=== PATIENT | female | born 1955 | race Caucasian/White ===

== ENCOUNTER 2019-10-31 20:02 | Inpatient (IN) | payer BC, MEDICARE ==
[2019-10-31] MEDS ORDERED: Famotidine 20 MG/2 ML SDV IVPUSH ONE (20:12)
[2019-10-31] MEDS ORDERED: Sodium Chloride 0.9% 1,000 ML IV ONE (20:12)
--- NOTE | 2019-10-31 20:19 | EDM.PDOC ---
ED HPI GENERAL MEDICAL PROBLEM - General Chief Complaint: General Stated Complaint: ABDOMINAL PAIN Time Seen by Provider: 10/31/19 20:09 Source of Information: Reports: Patient History Limitations: Reports: No Limitations - History of Present Illness INITIAL COMMENTS - FREE TEXT/NARRATIVE: Patient is a 63-year-old female who presents to the emergency department this evening via private vehicle with a complaint of abdominal pain. Patient states the abdominal pain began about 1800 yesterday, located right upper quadrant, feels like an ache and a stabbing pain. Symptoms persisted all day today, so she spoke to her son who decided to bring her to the emergency room. She states she does have a history of appendectomy. However, she believes she does still have her gallbladder. Symptoms did get worse after eating. Patient denies chest pain, shortness of breath, fever, out of area travel, lower extremity edema, nausea, vomiting or diarrhea. Onset: Gradual Onset Date: 10/30/19 Onset Time: 18:00 Duration: Day(s): Location: Reports: Abdomen Quality: Reports: Ache Severity: Moderate Improves with: Reports: None Worsens with: Reports: None Associated Symptoms: Reports: No Other Symptoms. Denies: Chest Pain, Cough, Diaphoresis, Fever/Chills, Nausea/Vomiting, Rash, Shortness of Breath Right Upper Abdomen Pain Score (Numeric/FACES): 6 - Related Data Allergies Allergy/AdvReac Type Severity Reaction Status Date / Time No Known Allergies Allergy Verified 10/31/19 20:07 Home Meds: Home Meds Calcium/D3/Argnin/Inos/Silicon [Bone Density Calcium + D Cplt] 1 each PO DAILY 10/31/19 [History] Cranberry 500 mg PO DAILY 10/31/19 [History] Ferrous Sulfate 325 mg PO DAILY 10/31/19 [History] Ibuprofen [Motrin] 400 mg PO BID 10/31/19 [History] Multivitamin [Multi-Day Vitamins] 1 tab PO DAILY 10/31/19 [History] Omeprazole 20 mg PO DAILY 10/31/19 [History] carBAMazepine [Carbamazepine] 200 mg PO BID 10/31/19 [History] guaiFENesin/Dextromethorphan [Mucus Relief DM] 1 tab PO DAILY 10/31/19 [History] ED ROS GENERAL - Review of Systems Review Of Systems: Comprehensive ROS is negative, except as noted in HPI. Constitutional: Reports: No Symptoms HEENT: Reports: No Symptoms Respiratory: Reports: No Symptoms Cardiovascular: Reports: No Symptoms Endocrine: Reports: No Symptoms GI/Abdominal: Reports: Abdominal Pain. Denies: Black Stool, Bloody Stool, Constipation, Diarrhea, Mucous in Stool : Reports: No Symptoms Musculoskeletal: Reports: No Symptoms Skin: Reports: No Symptoms Neurological: Reports: No Symptoms Psychiatric: Reports: No Symptoms Hematologic/Lymphatic: Reports: No Symptoms Immunologic: Reports: No Symptoms ED EXAM, GENERAL - Physical Exam Exam: See Below Exam Limited By: No Limitations General Appearance: Alert, WD/WN, No Apparent Distress Nose: Normal Inspection, Normal Mucosa, No Blood Throat/Mouth: Normal Inspection, Normal Oropharynx, No Airway Compromise Head: Atraumatic, Normocephalic Neck: Normal Inspection Respiratory/Chest: No Respiratory Distress, Lungs Clear, Normal Breath Sounds, No Accessory Muscle Use, Chest Non-Tender Cardiovascular: No Murmur, Tachycardia GI/Abdominal: Normal Bowel Sounds, Soft, Tender (Right upper quadrant) Back Exam: Normal Inspection. No: CVA Tenderness (L), CVA Tenderness (R) Extremities: Normal Inspection, No Pedal Edema Neurological: Alert, Oriented, Normal Cognition Psychiatric: Normal Affect, Normal Mood Skin Exam: Warm, Dry, Intact, Normal Color, No Rash Lymphatic: No Adenopathy Course - Vital Signs Last Recorded V/S: Last Vital Signs Temp 98.6 F 10/31/19 21:05 Pulse 111 H 10/31/19 21:05 Resp 18 10/31/19 21:05 BP 130/54 L 10/31/19 21:05 Pulse Ox 98 10/31/19 21:05 - Orders/Labs/Meds Orders: Active Orders 24 hr Category Date Time Status Patient Status [ADT] Routine ADT 10/31/19 22:02 Ordered Oxygen Therapy [RC] PRN Care 10/31/19 22:02 Ordered Peripheral IV Care [RC] . DIRECTED Care 10/31/19 20:12 Ordered VTE/DVT Education [RC] PER UNIT ROUTINE Care 10/31/19 22:02 Ordered Vital Signs [RC] Q4H Care 10/31/19 22:02 Ordered Abdomen Pelvis w Cont [CT] Stat Exams 10/31/19 20:09 Ordered CULTURE URINE [RM] Stat Lab 10/31/19 20:27 Received LACTIC ACID [CHEM] Stat Lab 10/31/19 21:55 Ordered Sodium Chloride 0.9% [Normal Saline] 50 ml Med 10/31/19 21:15 Active IV ASDIRECTED Sodium Chloride 0.9% [Saline Flush] Med 10/31/19 20:12 Ordered 10 ml FLUSH Q8HR PRN metroNIDAZOLE/Normal Saline [Flagyl 500 MG in NS 100 ML Med 10/31/19 21:58 Ordered ] 500 mg Premix Bag 1 bag IV ONETIME Peripheral IV Insertion Adult [OM.PC] Routine Oth 10/31/19 20:12 Ordered Resuscitation Status Routine Resus Stat 10/31/19 22:02 Ordered Medication Orders Sodium Chloride (Normal Saline) 50 mls @ 200 mls/hr IV ASDIRECTED ALTON Last Admin: 10/31/19 21:25 Dose: 200 mls/hr Metronidazole 500 mg/ Premix 100 mls @ 100 mls/hr IV ONETIME ONE Stop: 10/31/19 22:57 Sodium Chloride (Saline Flush) 10 ml FLUSH Q8HR PRN PRN Reason: keep vein open Last Admin: 10/31/19 20:34 Dose: 10 ml Labs: Laboratory Tests 10/31/19 10/31/19 10/31/19 Range/Units 20:17 20:17 20:27 WBC 19.54 H D (5.00-10.00) 10^3/uL RBC 3.02 L (3.80-5.50) 10^6/uL Hgb 10.8 L (12.0-16.0) g/dL Hct 30.6 L (37.0-47.0) % MCV 101.3 H (82.0-92.0) fL MCH 35.8 H (27.0-31.0) pg MCHC 35.3 (32.0-36.0) g/dL RDW 15.8 H (11.5-14.5) % Plt Count 191 (150-400) 10^3/uL MPV 9.6 (7.4-10.4) fL Immature Gran % (Auto) 0.3 (0.0-5.0) % Neut % (Auto) 89.6 H (50.0-70.0) % Lymph % (Auto) 3.3 L (20.0-40.0) % [place] % (Auto) 6.7 (2.0-8.0) % Eos % (Auto) 0.0 L (1.0-3.0) % Baso % (Auto) 0.1 (0.0-1.0) % Immature Gran # (Auto) 0.06 (0.00-0.50) 10^3/uL Neut # (Auto) 17.51 H (2.50-7.00) 10^3/uL Lymph # (Auto) 0.65 L (1.00-4.00) 10^3/uL [place] # (Auto) 1.30 H (0.10-0.80) 10^3/uL Eos # (Auto) 0.00 L (0.10-0.30) 10^3/uL Baso # (Auto) 0.02 (0.00-0.10) 10^3/uL Sodium 136 (136-145) mmol/L Potassium 3.9 (3.3-5.3) mmol/L Chloride 96 L (98-115) mmol/L Carbon Dioxide 28.4 (21.0-32.0) mmol/L Anion Gap 15.5 H (5-15) mmol/L BUN 13 (6-25) mg/dL Creatinine 0.55 (0.51-1.17) mg/dL Est Cr Clr Drug Dosing 89.23 mL/min Estimated GFR (MDRD) > 60 mL/min Glucose 138 H (75 - 99) mg/dL Calcium 8.7 (8.7-10.3) mg/dL Total Bilirubin 1.2 H (0.2-1.0) mg/dL AST 21 (15-37) U/L ALT 35 (12-78) U/L Alkaline Phosphatase 64 (46-116) IU/L Total Protein 7.5 (6.4-8.2) g/dL Albumin 3.64 (3.00-4.80) g/dL Lipase 62 L (73-393) U/L Specimen Type . Urine Color Dark yellow H (YELLOW) Urine Appearance Turbid H (CLEAR) Urine pH 6.0 (5.0-9.0) Ur Specific [place] 1.015 (1.005-1.030) Urine Protein >=300 H (NEGATIVE) mg/dL Urine Glucose (UA) Negative (NEGATIVE) mg/dL Urine Ketones Negative (NEGATIVE) mg/dL Urine Occult Blood Small H (NEGATIVE) Urine Nitrite Positive H (NEGATIVE) Urine Bilirubin Small H (NEGATIVE) Urine Urobilinogen 0.2 (0.2-1.0) E.U./dL Ur Leukocyte Esterase Large H (NEGATIVE) Urine RBC 5-10 H (0-5) /HPF Urine WBC 75-100 H (0-5) /HPF Urine Bacteria Many H (NONE TO FEW) /HPF Meds: Medications Generic Name Dose Route Start Last Admin Trade Name Freq PRN Reason Stop Dose Admin Sodium Chloride 50 mls @ 200 mls/hr 10/31/19 21:15 10/31/19 21:25 Normal Saline IV 200 mls/hr ASDIRECTED ALTON Administration Metronidazole 500 mg/ Premix 100 mls @ 100 mls/hr 10/31/19 21:58 IV 10/31/19 22:57 ONETIME ONE Sodium Chloride 10 ml 10/31/19 20:12 10/31/19 20:34 Saline Flush FLUSH 10 ml Q8HR PRN Administration keep vein open Discontinued Medications Generic Name Dose Route Start Last Admin Trade Name Freq PRN Reason Stop Dose Admin Ceftriaxone Sodium 2 gm 10/31/19 21:58 Rocephin IVPUSH 10/31/19 21:59 ONETIME ONE Famotidine 20 mg 10/31/19 20:12 10/31/19 20:34 Pepcid IVPUSH 10/31/19 20:13 20 mg ONETIME ONE Administration Sodium Chloride 1,000 mls @ 999 mls/hr 10/31/19 20:12 10/31/19 20:29 Normal Saline IV 10/31/19 21:12 999 mls/hr .BOLUS ONE Administration Iopamidol 100 ml 10/31/19 21:01 10/31/19 21:25 [id number] (76%) IV 10/31/19 21:02 75 ml ONETIME ONE Administration - Radiology Interpretation Free Text/Narrative:: CT abdomen and pelvis with contrast shows thickening of the gallbladder, likely representing cholecystitis, and a focal area of colitis from the terminal ileum and cecum. - Re-Assessments/Exams Free Text/Narrative Re-Assessment/Exam: 10/31/19 22:07 Patient afebrile, vital signs stable, pain relieved. Discussed case with Dr. Isaac johnston, patient will be admitted inpatient and followed. Patient given 2 g Rocephin and 500 mg Flagyl in ER. Departure - Departure Time of Disposition: 22:43 Disposition: Admitted As Inpatient 65 Condition: Fair Clinical Impression: Cholecystitis, UTI, Urinary tract infectious disease Leukocytosis Qualifiers: Leukocytosis type: unspecified Qualified Code(s): D72.829 - Elevated white blood cell count, unspecified - Discharge Information Forms: ED Department Discharge Sepsis Event Note - Focused Exam Vital Signs: Vital Signs Temp Pulse Resp BP Pulse Ox 10/31/19 21:05 98.6 F 111 H 18 130/54 L 98 10/31/19 20:40 110 H 18 132/57 L 98 10/31/19 20:21 99.2 F 118 H 20 130/56 L 95 Date Exam was Performed: 10/31/19 Time Exam was Performed: 22:08 - My Orders Last 24 Hours: My Active Orders 10/31/19 20:09 Abdomen Pelvis w Cont [CT] Stat 10/31/19 20:12 Peripheral IV Care [RC] . DIRECTED Sodium Chloride 0.9% [Saline Flush] 10 ml FLUSH Q8HR PRN Peripheral IV Insertion Adult [OM.PC] Routine 10/31/19 20:27 CULTURE URINE [RM] Stat 10/31/19 21:15 Sodium Chloride 0.9% [Normal Saline] 50 ml IV ASDIRECTED 10/31/19 21:55 LACTIC ACID [CHEM] Stat 10/31/19 21:58 metroNIDAZOLE/Normal Saline [Flagyl 500 MG in NS 100 ML] 500 mg Premix Bag 1 bag IV ONETIME 10/31/19 22:02 Patient Status [ADT] Routine Oxygen Therapy [RC] PRN VTE/DVT Education [RC] PER UNIT ROUTINE Vital Signs [RC] Q4H Resuscitation Status Routine - Assessment/Plan Last 24 Hours: My Active Orders 10/31/19 20:09 Abdomen Pelvis w Cont [CT] Stat 10/31/19 20:12 Peripheral IV Care [RC] . DIRECTED Sodium Chloride 0.9% [Saline Flush] 10 ml FLUSH Q8HR PRN Peripheral IV Insertion Adult [OM.PC] Routine 10/31/19 20:27 CULTURE URINE [RM] Stat 10/31/19 21:15 Sodium Chloride 0.9% [Normal Saline] 50 ml IV ASDIRECTED 10/31/19 21:55 LACTIC ACID [CHEM] Stat 10/31/19 21:58 metroNIDAZOLE/Normal Saline [Flagyl 500 MG in NS 100 ML] 500 mg Premix Bag 1 bag IV ONETIME 10/31/19 22:02 Patient Status [ADT] Routine Oxygen Therapy [RC] PRN VTE/DVT Education [RC] PER UNIT ROUTINE Vital Signs [RC] Q4H Resuscitation Status Routine Assessment:: Cholecystitis, UTI Plan: Admit to [facility]
[2019-10-31] MEDS: Sodium Chloride 0.9% 10 ML Syringe FLUSH PRN ×2 (20:34→23:15)
[2019-10-31 20:56] LABS: ANION GAP 15.5 mmol/L (5-15); CHLORIDE,CL 96 mmol/L (98-115); SODIUM,NA 136 mmol/L (136-145)
[2019-10-31] MEDS ORDERED: Iopamidol 755 Mg/ML 100 ML Bottle IV ONE (21:01)
[2019-10-31] MEDS ORDERED: Sodium Chloride 0.9% 50 ML IV SCH (21:15)
[2019-10-31] MEDS ORDERED: cefTRIAXone 1 GM Vial IVPUSH ONE (21:58)
[2019-10-31] MEDS ORDERED: metroNIDAZOLE/Normal Saline 500 MG in Premix Bag 1 BAG IV ONE (21:58)
[2019-10-31] MEDS ORDERED: Ampicillin/Sulbactam Na 1.5 GM in Sodium Chloride 0.9% 50 ML IV ONE (22:42)
[2019-10-31] MEDS ORDERED: Ketorolac 30 MG/ML SDV IVPUSH PRN (23:07)
[2019-10-31] MEDS: Sodium Chloride 0.9% 1,000 ML IV SCH (23:18)
[2019-10-31] MEDS ORDERED: carBAMazepine 200 MG Tab PO ONE (23:45)
[2019-10-31] MEDS: Ampicillin/Sulbactam Na 1.5 GM in Sodium Chloride 0.9% 50 ML IV SCH (23:54)
[2019-11-01] MEDS: Ampicillin/Sulbactam Na 1.5 GM in Sodium Chloride 0.9% 50 ML IV SCH ×2 (05:26→11:16)
[2019-11-01] MEDS ORDERED: Pantoprazole 40 MG Vial IVPUSH SCH (07:30)
[2019-11-01] MEDS: Sodium Chloride 0.9% 10 ML Syringe FLUSH PRN (07:45)
[2019-11-01 07:50] LABS: ANION GAP 12.6 mmol/L (5-15); CHLORIDE,CL 103 mmol/L (98-115); SODIUM,NA 140 mmol/L (136-145)
[2019-11-01] MEDS ORDERED: carBAMazepine 200 MG Tab PO SCH ×2 (09:00)
[2019-11-01] MEDS: Sodium Chloride 0.9% 1,000 ML IV SCH (09:09)
--- NOTE | 2019-11-01 09:31 | CT ---
[id number] CT/CT Abdomen Pelvis W IV EXAM: CT Abdomen Pelvis W IV CLINICAL DATA: ABDOMINAL PAIN COMPARISON: NO PREVIOUS SIMILAR EXAM IS AVAILABLE. FINDINGS: Inflammatory changes are seen at the level of the hepatic flexure of the colon and the gallbladder The gallbladder is distended The gallbladder wall is thickened. There is free fluid in the pelvis The remainder of the exam is unremarkable IMPRESSION: IMAGING FINDINGS MOST CONSISTENT WITH ACUTE CHOLECYSTITIS CORRELATION WITH ULTRASOUND MAY BE HELPFUL SURGICAL OPINION NEEDED Kade Ferrell MD 11/01/19 [id number] Thank you for allowing us to participate in the care of your patient.
--- NOTE | 2019-11-01 11:59 | PCM.HP.2 ---
H&P History of Present Illness - General Date of Service: 11/01/19 Admit Problem/Dx: Admission Diagnosis/Problem Admission Diagnosis/Problem Cholecystitis - History of Present Illness Initial Comments - Free Text/Narative: 63-year-old female admitted from the ED to inpatient status at [facility] due to acute cholecystitis. Patient initially presented to the ED via private vehicle by her son for right upper quadrant pain and nausea that was present for one day prior to presentation. The pain was an ache and stabbing. Pain was persistent throughout the day and night prompting her to seek care. She does note that symptoms worsen after eating. She was nauseated, but did not vomit. She denied chest pain, shortness of breath, fever, diarrhea or edema. There were no overnight concerns. Patient reports that the pain is less, but is still 4/10. She is hungry, no longer nauseated. She reports a bowel movement in the AM without hematochezia. Right Upper Abdomen Pain Score (Numeric/FACES): 4 - Related Data Allergies/Adverse Reactions: Allergies Allergy/AdvReac Type Severity Reaction Status Date / Time No Known Allergies Allergy Verified 10/31/19 23:24 Home Medications: Home Meds Calcium/D3/Argnin/Inos/Silicon [Bone Density Calcium + D Cplt] 1 each PO DAILY 10/31/19 [History] Cranberry 500 mg PO BID 10/31/19 [History] Ferrous Sulfate 325 mg PO BID 10/31/19 [History] Ibuprofen [Motrin] 400 mg PO BID 10/31/19 [History] Multivitamin [Multi-Day Vitamins] 1 tab PO DAILY 10/31/19 [History] Omeprazole 20 mg PO DAILY 10/31/19 [History] carBAMazepine [Carbamazepine] 400 mg PO BID 10/31/19 [History] guaiFENesin/Dextromethorphan [Mucus Relief DM] 1 tab PO BEDTIME 10/31/19 [ History] Past Medical History HEENT History: Reports: Impaired Vision Cardiovascular History: Reports: None Respiratory History: Reports: None Gastrointestinal History: Reports: None Genitourinary History: Reports: None [employer] History: Reports: Musculoskeletal History: Reports: None Neurological History: Reports: Seizure, Other (See Below) Other Neuro History: Epilepsy Psychiatric History: Reports: None Endocrine/Metabolic History: Reports: None Hematologic History: Reports: Anemia Immunologic History: Reports: None Oncologic (Cancer) History: Reports: None Dermatologic History: Reports: None - Past Surgical History HEENT Surgical History: Reports: Oral Surgery GI Surgical History: Reports: Appendectomy Female Surgical History: Reports: Tubal Ligation Social & Family History - Family History Family Medical History: Noncontributory - Tobacco Use Smoking Status *Q: Never Smoker - Caffeine Use Caffeine Use: Reports: Coffee - Recreational Drug Use Recreational Drug Use: No H&P Review of Systems - Review of Systems: Review Of Systems: See Below ([facility]) General: Denies: Fever, Chills, Weakness HEENT: Denies: Headaches, Sore Throat, Visual Changes Pulmonary: Denies: Shortness of Breath, Wheezing, Cough Cardiovascular: Denies: Chest Pain, Palpitations, Edema, Lightheadedness Gastrointestinal: Reports: Abdominal Pain (10/29). Denies: Black Stool, Constipation, Diarrhea Genitourinary: Denies: Dysuria, Frequency, Hematuria Musculoskeletal: Denies: Back Pain, Joint Pain, Muscle Pain Skin: Denies: Jaundice, Bruising, Rash Psychiatric: Denies: Confusion, Mood Lability, Anxiety Neurological: Denies: Dizziness, Headache, Numbness, Seizure, Weakness Hematologic/Lymphatic: Reports: Anemia Immunologic: Reports: No Symptoms Exam - Exam Exam: See Below - Vital Signs Vital Signs: Last Vital Signs Temp 37.5 C 11/01/19 11:00 Pulse 109 H 11/01/19 11:00 Resp 16 11/01/19 11:00 BP 118/67 11/01/19 11:00 Pulse Ox 97 11/01/19 11:00 Weight: 65.499 kg - Exam Physical Exam Comments:: GENERAL: Well-appearing adult, sitting up in chair in no acute distress. HEENT: Normocephalic, atraumatic. Conjunctiva clear. Nares patent without discharge. Mucous membranes moist, posterior pharynx unremarkable. NECK: Supple, no masses. CV: Tachycardia with regular rhythm, no murmurs, rubs, or gallops. 2+ radial pulses. PULMONARY: Normal effort, clear to auscultation bilaterally, no wheezes, rales, or rhonchi. ABDOMEN: Positive bowel sounds, soft, tender upon mild palpation to right upper quadrant with guarding noted, nondistended. EXTREMITIES: No edema, cyanosis, or clubbing. MUSCULOSKELETAL: Moves all extremities well. NEUROLOGICAL: No obvious deficits. DERMATOLOGIC: No rashes or suspicious lesions in exposed areas. PSYCHIATRIC: Alert, interactive, appropriate affect. - Patient Data Lab Results Last 24 hrs: Laboratory Results - last 24 hr 10/31/19 10/31/19 10/31/19 Range/Units 20:17 20:17 20:17 WBC 19.54 H D (5.00-10.00) 10^3/uL RBC 3.02 L (3.80-5.50) 10^6/uL Hgb 10.8 L (12.0-16.0) g/dL Hct 30.6 L (37.0-47.0) % MCV 101.3 H (82.0-92.0) fL MCH 35.8 H (27.0-31.0) pg MCHC 35.3 (32.0-36.0) g/dL RDW 15.8 H (11.5-14.5) % Plt Count 191 (150-400) 10^3/uL MPV 9.6 (7.4-10.4) fL Immature Gran % (Auto) 0.3 (0.0-5.0) % Neut % (Auto) 89.6 H (50.0-70.0) % Lymph % (Auto) 3.3 L (20.0-40.0) % [place] % (Auto) 6.7 (2.0-8.0) % Eos % (Auto) 0.0 L (1.0-3.0) % Baso % (Auto) 0.1 (0.0-1.0) % Immature Gran # (Auto) 0.06 (0.00-0.50) 10^3/uL Neut # (Auto) 17.51 H (2.50-7.00) 10^3/uL Lymph # (Auto) 0.65 L (1.00-4.00) 10^3/uL [place] # (Auto) 1.30 H (0.10-0.80) 10^3/uL Eos # (Auto) 0.00 L (0.10-0.30) 10^3/uL Baso # (Auto) 0.02 (0.00-0.10) 10^3/uL Sodium 136 (136-145) mmol/L Potassium 3.9 (3.3-5.3) mmol/L Chloride 96 L (98-115) mmol/L Carbon Dioxide 28.4 (21.0-32.0) mmol/L Anion Gap 15.5 H (5-15) mmol/L BUN 13 (6-25) mg/dL Creatinine 0.55 (0.51-1.17) mg/dL Est Cr Clr Drug Dosing 89.23 mL/min Estimated GFR (MDRD) > 60 mL/min Glucose 138 H (75 - 99) mg/dL Lactic Acid 1.6 (0.4-2.0) mmol/L Calcium 8.7 (8.7-10.3) mg/dL Total Bilirubin 1.2 H (0.2-1.0) mg/dL AST 21 (15-37) U/L ALT 35 (12-78) U/L Alkaline Phosphatase 64 (46-116) IU/L Total Protein 7.5 (6.4-8.2) g/dL Albumin 3.64 (3.00-4.80) g/dL Lipase 62 L (73-393) U/L Specimen Type Urine Color (YELLOW) Urine Appearance (CLEAR) Urine pH (5.0-9.0) Ur Specific [place] (1.005-1.030) Urine Protein (NEGATIVE) mg/dL Urine Glucose (UA) (NEGATIVE) mg/dL Urine Ketones (NEGATIVE) mg/dL Urine Occult Blood (NEGATIVE) Urine Nitrite (NEGATIVE) Urine Bilirubin (NEGATIVE) Urine Urobilinogen (0.2-1.0) E.U./dL Ur Leukocyte Esterase (NEGATIVE) Urine RBC (0-5) /HPF Urine WBC (0-5) /HPF Urine Bacteria (NONE TO FEW) /HPF 10/31/19 11/01/19 11/01/19 Range/Units 20:27 07:05 07:05 WBC 11.69 H (5.00-10.00) 10^3/uL RBC 2.46 L (3.80-5.50) 10^6/uL Hgb 8.7 L D (12.0-16.0) g/dL Hct 25.6 L (37.0-47.0) % MCV 104.1 H (82.0-92.0) fL MCH 35.4 H (27.0-31.0) pg MCHC 34.0 (32.0-36.0) g/dL RDW 16.0 H (11.5-14.5) % Plt Count 139 L (150-400) 10^3/uL MPV 9.2 (7.4-10.4) fL Immature Gran % (Auto) 0.9 (0.0-5.0) % Neut % (Auto) 86.1 H (50.0-70.0) % Lymph % (Auto) 5.7 L (20.0-40.0) % [place] % (Auto) 7.1 (2.0-8.0) % Eos % (Auto) 0.0 L (1.0-3.0) % Baso % (Auto) 0.2 (0.0-1.0) % Immature Gran # (Auto) 0.11 (0.00-0.50) 10^3/uL Neut # (Auto) 10.06 H (2.50-7.00) 10^3/uL Lymph # (Auto) 0.67 L (1.00-4.00) 10^3/uL [place] # (Auto) 0.83 H (0.10-0.80) 10^3/uL Eos # (Auto) 0.00 L (0.10-0.30) 10^3/uL Baso # (Auto) 0.02 (0.00-0.10) 10^3/uL Sodium 140 (136-145) mmol/L Potassium 3.9 (3.3-5.3) mmol/L Chloride 103 (98-115) mmol/L Carbon Dioxide 28.3 (21.0-32.0) mmol/L Anion Gap 12.6 (5-15) mmol/L BUN 8 (6-25) mg/dL Creatinine 0.58 (0.51-1.17) mg/dL Est Cr Clr Drug Dosing 84.62 mL/min Estimated GFR (MDRD) > 60 mL/min Glucose 119 H (75 - 99) mg/dL Lactic Acid (0.4-2.0) mmol/L Calcium 8.0 L (8.7-10.3) mg/dL Total Bilirubin 0.8 (0.2-1.0) mg/dL AST 15 (15-37) U/L ALT 26 (12-78) U/L Alkaline Phosphatase 49 (46-116) IU/L Total Protein 6.0 L (6.4-8.2) g/dL Albumin 2.80 L (3.00-4.80) g/dL Lipase (73-393) U/L Specimen Type . Urine Color Dark yellow H (YELLOW) Urine Appearance Turbid H (CLEAR) Urine pH 6.0 (5.0-9.0) Ur Specific [place] 1.015 (1.005-1.030) Urine Protein >=300 H (NEGATIVE) mg/dL Urine Glucose (UA) Negative (NEGATIVE) mg/dL Urine Ketones Negative (NEGATIVE) mg/dL Urine Occult Blood Small H (NEGATIVE) Urine Nitrite Positive H (NEGATIVE) Urine Bilirubin Small H (NEGATIVE) Urine Urobilinogen 0.2 (0.2-1.0) E.U./dL Ur Leukocyte Esterase Large H (NEGATIVE) Urine RBC 5-10 H (0-5) /HPF Urine WBC 75-100 H (0-5) /HPF Urine Bacteria Many H (NONE TO FEW) /HPF Result Diagrams: 11/01/19 07:05 11/01/19 07:05 Binh Results Last 24 hrs: Microbiology 10/31/19 20:27 Urine Culture - Final Urine, Voided Gram Negative Rods Sepsis Event Note - Evaluation Sepsis Screening Result: No Definite Risk - Focused Exam Vital Signs: Vital Signs Temp Pulse Resp BP Pulse Ox 11/01/19 11:00 37.5 C 109 H 16 118/67 97 11/01/19 06:51 36.3 C 113 H 24 H 114/60 96 11/01/19 02:46 37.2 C 111 H 24 H 121/66 97 Date Exam was Performed: 11/02/19 Time Exam was Performed: 11:25 Problem List Initiated/Reviewed/Updated: Yes Orders Last 24hrs: Active Orders 24 hr Category Date Time Status Patient Status [ADT] Routine ADT 10/31/19 22:02 Active Notify Provider Vital Signs [RC] ASDIRECTED Care 10/31/19 23:32 Active Oxygen Therapy [RC] PRN Care 10/31/19 22:02 Active Peripheral IV Care [RC] 0900,2100 Care 10/31/19 20:12 Active Ready for Discharge [RC] PER UNIT ROUTINE Care 11/01/19 11:40 Active VTE/DVT Education [RC] PER UNIT ROUTINE Care 10/31/19 22:02 Active Vital Signs [RC] 0300,0700,1100,1500,1900,2300 Care 10/31/19 22:02 Active NPO [Nothing Per Oral Diet] [DIET] Diet 10/31/19 Dinner Active URINE ID [MREF] Stat Lab 10/31/19 20:27 Received Ampicillin/Sulbactam Na [Unasyn] 1.5 gm Med 11/01/19 05:00 Active Sodium Chloride 0.9% [Normal Saline] 50 ml IV Q6HR Ketorolac [Toradol] Med 10/31/19 23:07 Active 30 mg IVPUSH Q6H PRN Pantoprazole [ProTONIX IV] Med 11/01/19 07:30 Active 40 mg IVPUSH ACBREAKFAST Sodium Chloride 0.9% [Normal Saline] 1,000 ml Med 10/31/19 22:45 Active IV ASDIRECTED carBAMazepine [TEGretol Tab] Med 11/01/19 09:00 Active 400 mg PO BID Peripheral IV Insertion Adult [OM.PC] Routine Oth 10/31/19 20:12 Ordered Resuscitation Status Routine Resus Stat 10/31/19 22:02 Ordered Medication Orders Carbamazepine (Tegretol Tab) [address] [facility] Last Admin: 11/01/19 08:28 Dose: 400 mg Sodium Chloride (Normal Saline) 1,000 mls @ 125 mls/hr IV ASDIRECTED [facility] Last Admin: 11/01/19 09:09 Dose: 125 mls/hr Infusion: 11/01/19 07:18 Dose: 125 mls/hr Admin: 10/31/19 23:18 Dose: 125 mls/hr Ampicillin Sodium/Sulbactam (Sodium 1.5 gm/ Sodium Chloride) 50 mls @ 100 mls/ hr IV Q6HR [facility] Last Admin: 11/01/19 11:16 Dose: 100 mls/hr Admin: 11/01/19 05:26 Dose: 100 mls/hr Admin: 10/31/19 23:54 Dose: 100 mls/hr Ketorolac Tromethamine (Toradol) 30 mg IVPUSH Q6H PRN PRN Reason: Pain Stop: 11/05/19 23:07 Last Admin: 11/01/19 06:16 Dose: 30 mg Pantoprazole Sodium (Protonix Iv) 40 mg IVPUSH ACBREAKFAST [place] Last Admin: 11/01/19 07:43 Dose: 40 mg Assessment/Plan Comment:: HPI summary: 63-year-old female admitted from the ED to inpatient status at [facility] due to acute cholecystitis. Patient initially presented to the ED via private vehicle by her son for right upper quadrant pain and nausea that was present for one day prior to presentation. The pain was an ache and stabbing. Pain was persistent throughout the day and night prompting her to seek care. She does note that symptoms worsen after eating. She was nauseated, but did not vomit. She denied chest pain, shortness of breath, fever, diarrhea or edema. ED course: Upon arrival patient's pain was 6/10, she was found to be afebrile, mildly tachycardic, with a blood pressure of 130/54, respiratory rate of 18 and oxygen saturation of 98%. Labs were completed revealing a WBC of 19.54, RBC 3.02, Hgb 10.8, Hct 30.6, Plt 191, Neutrophils 89.6. Electrolytes were unremarkable, BUN 13, Creatinine 0.55 with a gfr >60. LFTs were unremarkable and total bili was mildly elevated at 1.2. Lactic acid 1.6. Lipase 62. A urine was collected showing protein, positive nitrites, small amount of bili, large leukocyte esterase, 5-10 RBC, 75-100 WBC, and many bacteria. CT of the abdomen/pelvis was completed revealing "Inflammatory changes are seen at the level of the hepatic flexure of the colon and the gallbladder; gallbladder distention, gallbladder wall thickening and free fluid in the pelvis". She was given a one time IV dose of famotidine 20mg and NS bolus 1000mL in the ED. [employer] physician Dr. Eubanks was called by ED provider and recommendation was made for ED provider to contact [employer] general surgeon to review care. Per ED provider, due to COVID and patient's overall reassuring status, recommendation was made to admit locally for non-surgical management at this time. Admission accepted by Dr. Nicole Eubanks MD to inpatient status for IV hydration (NS 125ml/hr), IV antibiotics (Unasyn 1.5 q6hr) and pain control ( Toradol 30mg q6hr). Hospital course: Patient was mildly tachycardic overnight in the 110s. She remained afebrile and blood pressure was stable at 114/60. She received a single dose of ketorolac 30mg IVP at 0600, which did provide some relief of pain (reports 4/10) . She received three doses of Unasyn 1.5g IV as well as a maintenance IV of NS 125mL/hr. AM labs: WBC downtrended to 11.69, RBC 2.46, Hgb 8.7, Hct 25.6, plt 139, neut 86.1. Electrolytes and kidney function remained stable. Urine culture shows gram negative rods. There were no overnight concerns. Patient reports that the pain is less, but is still 4/10. She is hungry, no longer nauseated. She reports a bowel movement in the AM without hematochezia. Call placed to [facility] to general surgery (Dr. Cagle) to gauge timeline for definitive surgical treatment. She requests patient be transferred up to [facility] today and will plan for laparoscopic cholecystectomy in the AM. Discussed recommendation with patient. She is agreeable to ambulance transfer for surgery in the AM. Call placed to son who is also agreeable and all questions answered. Orders for transfer to [facility] via [facility] service placed. Hospitalization problems and plan: # Acute cholecystitis - Transfer to [facility] for definitive surgical management - Discontinue ketorolac and start Morphine 1mg IV every 30 minutes for pain control during transfer - Zofran 4mg IV every four hours PRN nausea - NS 125mL/hr maintenance hydration # Acute cystitis - Asymptomatic but UA consistent with infection - Culture obtained and pending - Regardless of asymptomatic status is receiving antibiotics as above # Anemia, acute on chronic Chronic, stable conditions: # Epilepsy, no seizure in 30 years, on carbamazepine daily # Carcinoma in situ of cervix uteri # GERD, previously controlled giving PPI IV currently due to NPO status Hospitalization details: # FEN: NS 125mL/hr, NPO # PPX: no pharmacologic DVT prophylaxis due to upcoming surgery # Code status: Full code # Emergency contact: fabi Lane-son # Disposition: Transfer via [facility] to [facility]
--- NOTE | 2019-11-01 12:05 | PCM.DCSUM1 ---
Discharge Summary - Hospital Course Free Text/Narrative:: Date of admission: 10/31/2019 Date of discharge: 11/01/2019 Admission diagnoses: # Acute cholecystitis # Acute cystitis # Anemia, acute on chronic Discharge diagnoses: # Acute cholecystitis # Acute cystitis # Anemia, acute on chronic Consultations: Dr. Cagle, [facility], general surgery Procedures: none Hospital course: 63-year-old female admitted from the ED to inpatient status at [facility] due to acute cholecystitis. Patient initially presented to the ED via private vehicle by her son for right upper quadrant pain and nausea that was present for one day prior to presentation. The pain was an ache and stabbing. Pain was persistent throughout the day and night prompting her to seek care. She does note that symptoms worsen after eating. She was nauseated, but did not vomit. She denied chest pain, shortness of breath, fever, diarrhea or edema. Upon arrival patient's pain was 6/10, she was found to be afebrile, mildly tachycardic, with a blood pressure of 130/54, respiratory rate of 18 and oxygen saturation of 98%. Labs were completed revealing a WBC of 19.54, RBC 3.02, Hgb 10.8, Hct 30.6, Plt 191, Neutrophils 89.6. Electrolytes were unremarkable, BUN 13, Creatinine 0.55 with a gfr >60. LFTs were unremarkable and total bili was mildly elevated at 1.2. Lactic acid 1.6. Lipase 62. A urine was collected showing protein, positive nitrites, small amount of bili, large leukocyte esterase, 5-10 RBC, 75-100 WBC, and many bacteria. CT of the abdomen/pelvis was completed revealing "Inflammatory changes are seen at the level of the hepatic flexure of the colon and the gallbladder; gallbladder distention, gallbladder wall thickening and free fluid in the pelvis". She was given a one time IV dose of famotidine 20mg and NS bolus 1000mL in the ED. [place] correspondence coordinator physician Dr. Eubanks was called by ED provider and recommendation was made for ED provider to contact [place] correspondence coordinator general surgeon to review care. Per ED provider, due to COVID and patient's overall reassuring status, recommendation was made to admit locally for non-surgical management at this time. Admission accepted by Dr. Nicole Eubanks MD to inpatient status for IV hydration (NS 125ml/hr), IV antibiotics (Unasyn 1.5 q6hr) and pain control ( Toradol 30mg q6hr). Patient was mildly tachycardic overnight in the 110s. She remained afebrile and blood pressure was stable at 114/60. She received a single dose of ketorolac 30mg IVP at 0600, which did provide some relief of pain (reports 4/10) . She received three doses of Unasyn 1.5g IV as well as a maintenance IV of NS 125mL/hr. AM labs: WBC downtrended to 11.69, RBC 2.46, Hgb 8.7, Hct 25.6, plt 139, neut 86.1. Electrolytes and kidney function remained stable. Urine culture shows gram negative rods. There were no overnight concerns. Patient reports that the pain is less, but is still 4/10. She is hungry, no longer nauseated. She reports a bowel movement in the AM without hematochezia. Call placed to [facility] to general surgery (Dr. Cagle) to gauge timeline for definitive surgical treatment. She requests patient be transferred up to [facility] today and will plan for laparoscopic cholecystectomy in the AM. Discussed recommendation with patient. She is agreeable to ambulance transfer for surgery in the AM. Call placed to son who is also agreeable and all questions answered. Orders for transfer to [facility] via [facility] placed. Discharge and follow-up recommendations: - Discharge to [facility] - New medications at discharge: none - Follow-up: Post-op follow up - Discharge Data Discharge Date: 11/01/19 Discharge Disposition: DC/Tfer to Acute Hospital 02 Condition: Fair - Referral to Home Health Primary Care Physician: Damaris Lemus MD - Patient Instructions Diet: NPO Activity: Bedrest, May Use Bathroom - Discharge Plan *PRESCRIPTION DRUG MONITORING PROGRAM REVIEWED*: Not Applicable *COPY OF PRESCRIPTION DRUG MONITORING REPORT IN PATIENT AMI: Not Applicable Home Medications: Home Meds Calcium/D3/Argnin/Inos/Silicon [Bone Density Calcium + D Cplt] 1 each PO DAILY 10/31/19 [History] Cranberry 500 mg PO BID 10/31/19 [History] Ferrous Sulfate 325 mg PO BID 10/31/19 [History] Ibuprofen [Motrin] 400 mg PO BID 10/31/19 [History] Multivitamin [Multi-Day Vitamins] 1 tab PO DAILY 10/31/19 [History] Omeprazole 20 mg PO DAILY 10/31/19 [History] carBAMazepine [Carbamazepine] 400 mg PO BID 10/31/19 [History] guaiFENesin/Dextromethorphan [Mucus Relief DM] 1 tab PO BEDTIME 10/31/19 [ History] - Discharge Summary/Plan Comment DC Time >30 min.: Yes - Patient Data Vitals - Most Recent: Last Vital Signs Temp 37.5 C 11/01/19 11:00 Pulse 109 H 11/01/19 11:00 Resp 16 11/01/19 11:00 BP 118/67 11/01/19 11:00 Pulse Ox 97 11/01/19 11:00 Weight - Most Recent: 65.499 kg I&O - Last 24 hours: Intake & Output 10/31/19 11/01/19 11/01/19 22:59 06:59 14:59 Intake Total 1000 847 Output Total 800 Balance 1000 47 Lab Results - Last 24 hrs: Laboratory Results - last 24 hr 10/31/19 10/31/19 10/31/19 Range/Units 20:17 20:17 20:17 WBC 19.54 H D (5.00-10.00) 10^3/uL RBC 3.02 L (3.80-5.50) 10^6/uL Hgb 10.8 L (12.0-16.0) g/dL Hct 30.6 L (37.0-47.0) % MCV 101.3 H (82.0-92.0) fL MCH 35.8 H (27.0-31.0) pg MCHC 35.3 (32.0-36.0) g/dL RDW 15.8 H (11.5-14.5) % Plt Count 191 (150-400) 10^3/uL MPV 9.6 (7.4-10.4) fL Immature Gran % (Auto) 0.3 (0.0-5.0) % Neut % (Auto) 89.6 H (50.0-70.0) % Lymph % (Auto) 3.3 L (20.0-40.0) % [place] % (Auto) 6.7 (2.0-8.0) % Eos % (Auto) 0.0 L (1.0-3.0) % Baso % (Auto) 0.1 (0.0-1.0) % Immature Gran # (Auto) 0.06 (0.00-0.50) 10^3/uL Neut # (Auto) 17.51 H (2.50-7.00) 10^3/uL Lymph # (Auto) 0.65 L (1.00-4.00) 10^3/uL [place] # (Auto) 1.30 H (0.10-0.80) 10^3/uL Eos # (Auto) 0.00 L (0.10-0.30) 10^3/uL Baso # (Auto) 0.02 (0.00-0.10) 10^3/uL Sodium 136 (136-145) mmol/L Potassium 3.9 (3.3-5.3) mmol/L Chloride 96 L (98-115) mmol/L Carbon Dioxide 28.4 (21.0-32.0) mmol/L Anion Gap 15.5 H (5-15) mmol/L BUN 13 (6-25) mg/dL Creatinine 0.55 (0.51-1.17) mg/dL Est Cr Clr Drug Dosing 89.23 mL/min Estimated GFR (MDRD) > 60 mL/min Glucose 138 H (75 - 99) mg/dL Lactic Acid 1.6 (0.4-2.0) mmol/L Calcium 8.7 (8.7-10.3) mg/dL Total Bilirubin 1.2 H (0.2-1.0) mg/dL AST 21 (15-37) U/L ALT 35 (12-78) U/L Alkaline Phosphatase 64 (46-116) IU/L Total Protein 7.5 (6.4-8.2) g/dL Albumin 3.64 (3.00-4.80) g/dL Lipase 62 L (73-393) U/L Specimen Type Urine Color (YELLOW) Urine Appearance (CLEAR) Urine pH (5.0-9.0) Ur Specific [place] (1.005-1.030) Urine Protein (NEGATIVE) mg/dL Urine Glucose (UA) (NEGATIVE) mg/dL Urine Ketones (NEGATIVE) mg/dL Urine Occult Blood (NEGATIVE) Urine Nitrite (NEGATIVE) Urine Bilirubin (NEGATIVE) Urine Urobilinogen (0.2-1.0) E.U./dL Ur Leukocyte Esterase (NEGATIVE) Urine RBC (0-5) /HPF Urine WBC (0-5) /HPF Urine Bacteria (NONE TO FEW) /HPF 10/31/19 11/01/19 11/01/19 Range/Units 20:27 07:05 07:05 WBC 11.69 H (5.00-10.00) 10^3/uL RBC 2.46 L (3.80-5.50) 10^6/uL Hgb 8.7 L D (12.0-16.0) g/dL Hct 25.6 L (37.0-47.0) % MCV 104.1 H (82.0-92.0) fL MCH 35.4 H (27.0-31.0) pg MCHC 34.0 (32.0-36.0) g/dL RDW 16.0 H (11.5-14.5) % Plt Count 139 L (150-400) 10^3/uL MPV 9.2 (7.4-10.4) fL Immature Gran % (Auto) 0.9 (0.0-5.0) % Neut % (Auto) 86.1 H (50.0-70.0) % Lymph % (Auto) 5.7 L (20.0-40.0) % [place] % (Auto) 7.1 (2.0-8.0) % Eos % (Auto) 0.0 L (1.0-3.0) % Baso % (Auto) 0.2 (0.0-1.0) % Immature Gran # (Auto) 0.11 (0.00-0.50) 10^3/uL Neut # (Auto) 10.06 H (2.50-7.00) 10^3/uL Lymph # (Auto) 0.67 L (1.00-4.00) 10^3/uL [place] # (Auto) 0.83 H (0.10-0.80) 10^3/uL Eos # (Auto) 0.00 L (0.10-0.30) 10^3/uL Baso # (Auto) 0.02 (0.00-0.10) 10^3/uL Sodium 140 (136-145) mmol/L Potassium 3.9 (3.3-5.3) mmol/L Chloride 103 (98-115) mmol/L Carbon Dioxide 28.3 (21.0-32.0) mmol/L Anion Gap 12.6 (5-15) mmol/L BUN 8 (6-25) mg/dL Creatinine 0.58 (0.51-1.17) mg/dL Est Cr Clr Drug Dosing 84.62 mL/min Estimated GFR (MDRD) > 60 mL/min Glucose 119 H (75 - 99) mg/dL Lactic Acid (0.4-2.0) mmol/L Calcium 8.0 L (8.7-10.3) mg/dL Total Bilirubin 0.8 (0.2-1.0) mg/dL AST 15 (15-37) U/L ALT 26 (12-78) U/L Alkaline Phosphatase 49 (46-116) IU/L Total Protein 6.0 L (6.4-8.2) g/dL Albumin 2.80 L (3.00-4.80) g/dL Lipase (73-393) U/L Specimen Type . Urine Color Dark yellow H (YELLOW) Urine Appearance Turbid H (CLEAR) Urine pH 6.0 (5.0-9.0) Ur Specific [place] 1.015 (1.005-1.030) Urine Protein >=300 H (NEGATIVE) mg/dL Urine Glucose (UA) Negative (NEGATIVE) mg/dL Urine Ketones Negative (NEGATIVE) mg/dL Urine Occult Blood Small H (NEGATIVE) Urine Nitrite Positive H (NEGATIVE) Urine Bilirubin Small H (NEGATIVE) Urine Urobilinogen 0.2 (0.2-1.0) E.U./dL Ur Leukocyte Esterase Large H (NEGATIVE) Urine RBC 5-10 H (0-5) /HPF Urine WBC 75-100 H (0-5) /HPF Urine Bacteria Many H (NONE TO FEW) /HPF LEIGH Results - Last 24 hrs: Microbiology 10/31/19 20:27 Urine Culture - Final Urine, Voided Gram Negative Rods Med Orders - Current: Current Medications Carbamazepine (Tegretol Tab) 400 mg PO BID [place] Last Admin: 11/01/19 08:28 Dose: 400 mg Sodium Chloride (Normal Saline) 1,000 mls @ 125 mls/hr IV ASDIRECTED [facility] Last Admin: 11/01/19 09:09 Dose: 125 mls/hr Ampicillin Sodium/Sulbactam (Sodium 1.5 gm/ Sodium Chloride) 50 mls @ 100 mls/ hr IV Q6HR [facility] Last Admin: 11/01/19 11:16 Dose: 100 mls/hr Ketorolac Tromethamine (Toradol) 30 mg IVPUSH Q6H PRN PRN Reason: Pain Stop: 11/05/19 23:07 Last Admin: 11/01/19 06:16 Dose: 30 mg Pantoprazole Sodium (Protonix Iv) 40 mg IVPUSH ACBREAKFAST [facility] Last Admin: 11/01/19 07:43 Dose: 40 mg Discontinued Medications Carbamazepine (Tegretol Tab) 200 mg PO BID [facility] Carbamazepine (Tegretol Tab) 400 mg PO ONETIME ONE Stop: 10/31/19 23:46 Last Admin: 11/01/19 00:15 Dose: 400 mg Ceftriaxone Sodium (Rocephin) 2 gm IVPUSH ONETIME ONE Stop: 10/31/19 21:59 Last Admin: 10/31/19 23:03 Dose: Not Given Famotidine (Pepcid) 20 mg IVPUSH ONETIME ONE Stop: 10/31/19 20:13 Last Admin: 10/31/19 20:34 Dose: 20 mg Sodium Chloride (Normal Saline) 1,000 mls @ 999 mls/hr IV .BOLUS ONE Stop: 10/31/19 21:12 Last Admin: 10/31/19 20:29 Dose: 999 mls/hr Sodium Chloride (Normal Saline) 50 mls @ 200 mls/hr IV ASDIRECTED [facility] Last Admin: 10/31/19 21:25 Dose: 200 mls/hr Metronidazole 500 mg/ Premix 100 mls @ 100 mls/hr IV ONETIME ONE Stop: 10/31/19 22:57 Last Admin: 11/01/19 00:16 Dose: Not Given Ampicillin Sodium/Sulbactam (Sodium 1.5 gm/ Sodium Chloride) 50 mls @ 100 mls/ hr IV ONETIME ONE Stop: 10/31/19 23:11 Last Admin: 10/31/19 23:56 Dose: Not Given Iopamidol (Isovue-370 (76%)) 100 ml IV ONETIME ONE Stop: 10/31/19 21:02 Last Admin: 10/31/19 21:25 Dose: 75 ml Sodium Chloride (Saline Flush) 10 ml FLUSH Q8HR PRN PRN Reason: keep vein open Last Admin: 11/01/19 07:45 Dose: 10 ml
== END 2019-11-01 12:40 ==
LOC: KA.ED 20:02 → KA.MS 22:02 → UNDOADMIN 22:57 → UNDODISIN 11-01 12:40
PROVIDERS: ADMIT Physician Assistant Surgical; ATTEND Family Medicine
DX: K81.0 Acute cholecystitis (principal); N30.00 Acute cystitis without hematuria; D64.9 Anemia, unspecified; G40.909 Epilepsy, unspecified, not intractable, without status epilepticus; K21.9 Gastro-esophageal reflux disease without esophagitis; D06.9 Carcinoma in situ of cervix, unspecified; B96.89 Other specified bacterial agents as the cause of diseases classified elsewhere; Z79.899 Other long term (current) drug therapy; Z90.49 Acquired absence of other specified parts of digestive tract
CPT/HCPCS: 36415; 74177; 80053; 81001; 83605; 83690; 85025; 87086; 87088; 96361; 96374; 99285-25; A9270-GY; C9113; J0295; J1885; J3490; J7030; J7050; Q9967